=== PATIENT | male | born 1950 | race African-American/Black ===

== ENCOUNTER 2017-11-30 08:53 | Inpatient (IN) | payer OTHER ==
[2017-11-30 09:17] LABS: ADD MAN DIFF? NO
[2017-11-30 09:27] LABS: ANION GAP 9 (6-14); BLOOD UREA NITROGEN 7 mg/dL (8-26); CALCIUM 9.4 mg/dL (8.5-10.1); CARBON DIOXIDE 31 mmol/L (21-32); CHLORIDE 93 mmol/L (98-107); CREATININE 0.9 mg/dL (0.7-1.3); GFR 101.2; GLUCOSE 109 mg/dL (70-99); POTASSIUM 3.8 mmol/L (3.5-5.1); SODIUM 133 mmol/L (136-145)
[2017-11-30 09:33] LABS: ALBUMIN 3.8 g/dL (3.4-5.0); ALK PHOS 70 U/L (46-116); ALT (SGPT) 26 U/L (16-63); AST (SGOT) 25 U/L (15-37); DIRECT BILIRUBIN 0.2 mg/dL (0.0-0.2); LIPASE 165 U/L (73-393); TOTAL PROTEIN 7.6 g/dL (6.4-8.2)
[2017-11-30 09:36] LABS: TROPONINI < 0.017 ng/mL (0.000-0.055)
[2017-11-30] MEDS ORDERED: IPRATRPIUM/ALBUTEROL 0.5/2.5MG 3 ML NEBU. (09:36)
[2017-11-30] MEDS: IPRATRPIUM/ALBUTEROL 0.5/2.5MG 3 ML NEBU. NEB (09:41)
[2017-11-30 09:42] LABS: NT-PRO BNP 552 pg/mL (0-124)
[2017-11-30 09:44] LABS: BASO % 0 % (0-3); EOS # 0.1 x10^3/uL (0.0-0.7); EOS % 1 % (0-3); HEMATOCRIT 45.4 % (39.0-53.0); HEMOGLOBIN 15.5 g/dL (13.0-17.5); LYMPH # 0.8 x10^3/uL (1.0-4.8); LYMPH % 13 % (24-48); MEAN CORPUSCULAR HEMOGLOBIN 33 pg (25-35); MEAN CORPUSCULAR HGB CONC 34 g/dL (31-37); MEAN CORPUSCULAR VOLUME 95 fL (79-100); MONO # 0.7 x10^3/uL (0.0-1.1); MONO % 12 % (0-9); NEUT # 4.6 x10^3uL (1.8-7.7); NEUT % 74 % (31-73); PLATELET COUNT 184 x10^3/uL (140-400); RED BLOOD COUNT 4.76 x10^6/uL (4.30-5.70); WHITE BLOOD COUNT 6.2 x10^3/uL (4.0-11.0)
[2017-11-30 09:55] LABS: PARTIAL THROMBOPLASTIN TIME 30 SEC (24-38)
[2017-11-30] MEDS ORDERED: MORPHINE SULFATE 2 MG/ML DISP.SYRIN. IV (11:30)
[2017-11-30] MEDS ORDERED: NITROGLYCERIN SUBLINGUAL 0.4 MG BOTTLE OF 25. SL (11:30)
[2017-11-30] MEDS ORDERED: ONDANSETRON PF 4 MG/2 ML VIAL. IV (11:30)
[2017-11-30] MEDS ORDERED: ASPIRIN 325 MG TABLET (11:44)
[2017-11-30] MEDS ORDERED: HYDROcodone/APAP 5/325MG 1 TAB TABLET (11:46)
[2017-11-30] MEDS: HYDROcodone/APAP 5/325MG 1 TAB TABLET PO ×3 (11:48→22:12)
[2017-11-30] MEDS: ASPIRIN CHEWABLE 81 MG TABLET. PO (11:49)
[2017-11-30 12:10] LABS: MAGNESIUM 1.9 mg/dL (1.8-2.4)
[2017-11-30 12:32] LABS: INFLUENZA A PATIENT NEGATIVE (NEGATIVE); INFLUENZA B PATIENT NEGATIVE (NEGATIVE); OBC FLU VALID
[2017-11-30 13:20] LABS: TROPONINI < 0.017 ng/mL (0.000-0.055)
[2017-11-30] MEDS: IV NORMAL SALINE 1000ML BAG 1,000 ML IV (15:17)
[2017-12-01] MEDS: IV NORMAL SALINE 1000ML BAG 1,000 ML IV ×2 (00:54→07:22)
[2017-12-01 01:33] LABS: TROPONINI < 0.017 ng/mL (0.000-0.055)
[2017-12-01 05:02] LABS: ADD MAN DIFF? NO
[2017-12-01 05:29] LABS: BASO % 0 % (0-3); EOS # 0.1 x10^3/uL (0.0-0.7); EOS % 1 % (0-3); HEMOGLOBIN 14.2 g/dL (13.0-17.5); LYMPH # 0.8 x10^3/uL (1.0-4.8); LYMPH % 16 % (24-48); MEAN CORPUSCULAR HEMOGLOBIN 33 pg (25-35); MEAN CORPUSCULAR HGB CONC 34 g/dL (31-37); MEAN CORPUSCULAR VOLUME 97 fL (79-100); MONO # 0.7 x10^3/uL (0.0-1.1); MONO % 14 % (0-9); NEUT # 3.5 x10^3uL (1.8-7.7); NEUT % 69 % (31-73); PLATELET COUNT 141 x10^3/uL (140-400); RED BLOOD COUNT 4.35 x10^6/uL (4.30-5.70); RED CELL DISTRIBUTION WIDTH 14.2 % (11.5-14.5); WHITE BLOOD COUNT 5.1 x10^3/uL (4.0-11.0)
[2017-12-01 06:04] LABS: CHOLESTEROL 158 mg/dL (0-200); HDLC 53 mg/dL (40-60); LDLC 99 mg/dL (0-100); NON-HDL CHOLESTEROL 105 mg/dL (0-129); TRIGLYCERIDES 30 mg/dL (0-150); VLDLC 6 mg/dL (0-40)
[2017-12-01 06:19] LABS: ANION GAP 10 (6-14); BLOOD UREA NITROGEN 10 mg/dL (8-26); CALCIUM 8.7 mg/dL (8.5-10.1); CARBON DIOXIDE 28 mmol/L (21-32); CHLORIDE 97 mmol/L (98-107); CREATININE 0.9 mg/dL (0.7-1.3); GFR 101.2; GLUCOSE 80 mg/dL (70-99); POTASSIUM 4.3 mmol/L (3.5-5.1); SODIUM 135 mmol/L (136-145)
[2017-12-01 07:34] LABS: BARBITURATES NEG (NEG); BENZODIAZEPINES NEG (NEG); CANNABINOIDS POS (NEG); COCAINE NEG (NEG); METHADONE NEG (NEG); OPIATES POS (NEG); PHENCYCLIDINE NEG (NEG)
[2017-12-01 07:36] LABS: AMPHETAMINE/METHAMPHETAMINE NEG (NEG); ETHANOL, URINE NEG (NEG)
[2017-12-01] MEDS: REGADENOSON 0.4 MG/5 ML DISP.SYRIN. IV (11:10)
[2017-12-01] MEDS: MULTIVITAMIN with MINERAL TABLET. PO (12:00)
[2017-12-01] MEDS: FOLIC ACID 1 MG TABLET. PO (12:00)
[2017-12-01] MEDS: THIAMINE 100 MG in IV DEXTROSE 5% 50 ML IV (17:10)
[2017-12-01] MEDS: FAMOTIDINE 20 MG TABLET. PO (18:12)
[2017-12-01] MEDS: BENZOCAINE/MENTHOL LOZENGE. PO ×2 (19:54→22:09)
[2017-12-02 03:51] LABS: ADD MAN DIFF? NO
[2017-12-02 03:56] LABS: BASO % 0 % (0-3); EOS # 0.1 x10^3/uL (0.0-0.7); EOS % 2 % (0-3); HEMATOCRIT 46.5 % (39.0-53.0); HEMOGLOBIN 15.6 g/dL (13.0-17.5); LYMPH # 1.6 x10^3/uL (1.0-4.8); LYMPH % 22 % (24-48); MEAN CORPUSCULAR HEMOGLOBIN 32 pg (25-35); MEAN CORPUSCULAR HGB CONC 34 g/dL (31-37); MEAN CORPUSCULAR VOLUME 96 fL (79-100); MONO # 0.7 x10^3/uL (0.0-1.1); MONO % 10 % (0-9); NEUT # 4.7 x10^3uL (1.8-7.7); NEUT % 66 % (31-73); PLATELET COUNT 163 x10^3/uL (140-400); RED BLOOD COUNT 4.87 x10^6/uL (4.30-5.70); RED CELL DISTRIBUTION WIDTH 13.9 % (11.5-14.5)
[2017-12-02 04:16] LABS: ANION GAP 5 (6-14); BLOOD UREA NITROGEN 8 mg/dL (8-26); CALCIUM 8.9 mg/dL (8.5-10.1); CARBON DIOXIDE 32 mmol/L (21-32); CHLORIDE 97 mmol/L (98-107); CREATININE 0.7 mg/dL (0.7-1.3); GFR 135.3; GLUCOSE 101 mg/dL (70-99); SODIUM 134 mmol/L (136-145)
[2017-12-02] MEDS: MULTIVITAMIN with MINERAL TABLET. PO (08:35)
[2017-12-02] MEDS: FOLIC ACID 1 MG TABLET. PO (08:35)
[2017-12-02] MEDS: CARVEDILOL 3.125 MG TABLET. PO (13:52)
[2017-12-02] MEDS ORDERED: hydroCHLOROthiazide 12.5 MG CAPSULE PO (15:00)
[2017-12-02] MEDS: LISINOPRIL 10 MG TABLET PO (15:11)
[2017-12-02] MEDS ORDERED: CARVEDILOL 3.125 MG TABLET. PO (17:00)
[2017-12-02] MEDS ORDERED: ATORVASTATIN CALCIUM 10 MG TABLET. PO (21:00)
[2017-12-03] MEDS ORDERED: ASPIRIN ENTERIC COATED 81 MG TABLET.DR. PO (08:00)
== END 2017-12-02 16:50 | disposition home or self-care (01) | DRG 303 ==
LOC: ER 08:53 → 2 SOUTH 11:24
DX: I25.119 Atherosclerotic heart disease of native coronary artery with unspecified angina pectoris (principal); I11.0 Hypertensive heart disease with heart failure; E87.1 Hypo-osmolality and hyponatremia; I42.9 Cardiomyopathy, unspecified; I50.9 Heart failure, unspecified; R07.89 Other chest pain; F10.20 Alcohol dependence, uncomplicated; R03.0 Elevated blood-pressure reading, without diagnosis of hypertension; I49.3 Ventricular premature depolarization; K21.9 Gastro-esophageal reflux disease without esophagitis; Z82.49 Family history of ischemic heart disease and other diseases of the circulatory system; Z87.11 Personal history of peptic ulcer disease; Z87.891 Personal history of nicotine dependence
CPT/HCPCS: 36415; 71045; 78452; 80048; 80061; 80076; 80307; 83690; 83735; 83880; 84443; 84484; 85025; 85610; 85730; 87804; 87804-59; 93005; 93017; 93306; 94640; 96375; 96376; 99285; 99285-25; A9500; J2785; J7030; J7620

== ENCOUNTER 2017-12-03 12:09 | Inpatient (IN) | payer OTHER ==
[2017-12-03 13:27] LABS: ADD MAN DIFF? NO
[2017-12-03 13:29] LABS: BASO % 0 % (0-3); EOS % 1 % (0-3); HEMOGLOBIN 15.9 g/dL (13.0-17.5); LYMPH # 1.2 x10^3/uL (1.0-4.8); LYMPH % 17 % (24-48); MEAN CORPUSCULAR HEMOGLOBIN 32 pg (25-35); MEAN CORPUSCULAR HGB CONC 34 g/dL (31-37); MEAN CORPUSCULAR VOLUME 96 fL (79-100); MONO # 0.7 x10^3/uL (0.0-1.1); MONO % 9 % (0-9); NEUT # 5.4 x10^3uL (1.8-7.7); NEUT % 73 % (31-73); PLATELET COUNT 188 x10^3/uL (140-400); RED BLOOD COUNT 4.92 x10^6/uL (4.30-5.70); RED CELL DISTRIBUTION WIDTH 14.2 % (11.5-14.5); WHITE BLOOD COUNT 7.3 x10^3/uL (4.0-11.0)
[2017-12-03 13:41] LABS: INFLUENZA A PATIENT NEGATIVE (NEGATIVE); INFLUENZA B PATIENT NEGATIVE (NEGATIVE)
[2017-12-03 13:42] LABS: OBC FLU VALID
[2017-12-03 13:47] LABS: ANION GAP 11 (6-14); BLOOD UREA NITROGEN 18 mg/dL (8-26); BUN/CREATININE RATIO 16 (6-20); CALCIUM 9.5 mg/dL (8.5-10.1); CARBON DIOXIDE 28 mmol/L (21-32); CHLORIDE 99 mmol/L (98-107); CREATININE 1.1 mg/dL (0.7-1.3); GFR 80.3; GLUCOSE 121 mg/dL (70-99); POTASSIUM 4.5 mmol/L (3.5-5.1); SODIUM 138 mmol/L (136-145)
[2017-12-03 13:49] LABS: BILIRUBIN,URINE SMALL (NEG); CLARITY,URINE CLOUDY; COLOR,URINE AMBER; GLUCOSE,URINE NEGATIVE (NEG); NITRITE,URINE NEGATIVE (NEG); PH,URINE 5.5; PROTEIN,URINE NEGATIVE (NEG-TRACE); UROBILINOGEN,URINE 0.2 mg/dL (0.2 mg/dL)
[2017-12-03 13:53] LABS: ALBUMIN 3.7 g/dL (3.4-5.0); ALK PHOS 69 U/L (46-116); ALT (SGPT) 30 U/L (16-63); AST (SGOT) 23 U/L (15-37); TOTAL BILIRUBIN 0.8 mg/dL (0.2-1.0); TOTAL PROTEIN 7.3 g/dL (6.4-8.2)
[2017-12-03 13:58] LABS: TROPONINI < 0.017 ng/mL (0.000-0.055)
[2017-12-03 13:59] LABS: BACTERIA,URINE 0 /HPF (0-FEW)
[2017-12-03 14:00] LABS: HYALINE CASTS, URINE MANY /HPF
[2017-12-03 14:10] LABS: NT-PRO BNP 371 pg/mL (0-124)
[2017-12-03 14:10] LABS: CKMB MASS 0.7 ng/mL (0.0-3.6)
[2017-12-03 14:11] LABS: CREATINE KINASE 36 U/L (39-308)
[2017-12-03] MEDS: IV NORMAL SALINE 1000ML BAG 1,000 ML IV (15:29)
[2017-12-03] MEDS ORDERED: ACETAMINOPHEN 325 MG TABLET. PO (15:30)
[2017-12-03] MEDS: ASPIRIN ENTERIC COATED 325 MG TABLET.DR. PO (17:34)
[2017-12-03] MEDS: CARVEDILOL 3.125 MG TABLET. PO (17:34)
[2017-12-03] MEDS: LISINOPRIL 5 MG TABLET. PO (17:35)
[2017-12-03] MEDS: ATORVASTATIN CALCIUM 10 MG TABLET. PO (21:37)
[2017-12-04] MEDS: IV NORMAL SALINE 1000ML BAG 1,000 ML IV ×2 (04:49→10:37)
[2017-12-04 06:19] LABS: ADD MAN DIFF? NO
[2017-12-04 06:45] LABS: BASO % 0 % (0-3); EOS # 0.1 x10^3/uL (0.0-0.7); EOS % 1 % (0-3); HEMATOCRIT 45.4 % (39.0-53.0); HEMOGLOBIN 15.4 g/dL (13.0-17.5); LYMPH # 1.6 x10^3/uL (1.0-4.8); LYMPH % 26 % (24-48); MEAN CORPUSCULAR HEMOGLOBIN 32 pg (25-35); MEAN CORPUSCULAR HGB CONC 34 g/dL (31-37); MEAN CORPUSCULAR VOLUME 95 fL (79-100); MONO # 0.7 x10^3/uL (0.0-1.1); MONO % 11 % (0-9); NEUT # 3.9 x10^3uL (1.8-7.7); NEUT % 61 % (31-73); PLATELET COUNT 216 x10^3/uL (140-400); RED BLOOD COUNT 4.77 x10^6/uL (4.30-5.70); WHITE BLOOD COUNT 6.3 x10^3/uL (4.0-11.0)
[2017-12-04 07:01] LABS: ANION GAP 5 (6-14); BLOOD UREA NITROGEN 19 mg/dL (8-26); CALCIUM 9.3 mg/dL (8.5-10.1); CARBON DIOXIDE 33 mmol/L (21-32); CHLORIDE 98 mmol/L (98-107); GFR 89.6; GLUCOSE 96 mg/dL (70-99); POTASSIUM 4.5 mmol/L (3.5-5.1); SODIUM 136 mmol/L (136-145)
[2017-12-04] MEDS: CARVEDILOL 3.125 MG TABLET. PO ×2 (07:57→18:32)
[2017-12-04] MEDS: ASPIRIN ENTERIC COATED 325 MG TABLET.DR. PO (07:57)
[2017-12-04] MEDS: LISINOPRIL 5 MG TABLET. PO (07:58)
[2017-12-04] MEDS ORDERED: LIDOCAINE 2% 20 ML VIAL. (08:44)
[2017-12-04] MEDS ORDERED: IOHEXOL 300 MG/ML 100ML VIAL. (08:44)
[2017-12-04] MEDS ORDERED: fentaNYL PF VIAL 100 MCG/2 ML VIAL (09:19)
[2017-12-04] MEDS ORDERED: MIDAZOLAM HCL/PF 2 MG/2 ML VIAL. (09:20)
[2017-12-04] MEDS ORDERED: IODIXANOL 320 MG/ML 100 ML VIAL. (09:34)
[2017-12-04] MEDS: MIDAZOLAM HCL/PF 2 MG/2 ML VIAL. IV (09:37)
[2017-12-04] MEDS ORDERED: CONTRAST GIVEN MC (09:45)
[2017-12-04] MEDS: LIDOCAINE 2% 20 ML VIAL. IJ (09:46)
[2017-12-04] MEDS ORDERED: HEPARIN for IV BOLUS 10,000 UNIT/10 ML VIAL. (10:03)
[2017-12-04] MEDS: fentaNYL PF VIAL 100 MCG/2 ML VIAL IV ×2 (10:14→10:20)
[2017-12-04] MEDS: HEPARIN for IV BOLUS 10,000 UNIT/10 ML VIAL. IV (10:15)
[2017-12-04] MEDS: IOHEXOL 300 MG/ML 100ML VIAL. IART (10:16)
[2017-12-04] MEDS ORDERED: 0.9 % SODIUM CHLORIDE 10 ML DISP.SYRIN. IV (10:45)
[2017-12-04] MEDS ORDERED: NITROGLYCERIN SUBLINGUAL 0.4 MG BOTTLE OF 25. SL (10:45)
[2017-12-04] MEDS: ONDANSETRON PF 4 MG/2 ML VIAL. IV (12:19)
[2017-12-04] MEDS ORDERED: ACETAMINOPHEN 325 MG TABLET. PO (13:15)
[2017-12-04] MEDS ORDERED: MORPHINE SULFATE 2 MG/ML DISP.SYRIN. IV (13:15)
[2017-12-04] MEDS ORDERED: ONDANSETRON PF 4 MG/2 ML VIAL. IV (13:15)
[2017-12-04] MEDS ORDERED: hydrALAZINE 20 MG/ML VIAL. IVP (13:15)
[2017-12-04] MEDS: ENOXAPARIN 40 MG/0.4 ML SYRINGE. SQ (18:33)
[2017-12-04] MEDS: ATORVASTATIN CALCIUM 10 MG TABLET. PO (21:17)
[2017-12-04] MEDS: CLOPIDOGREL BISULFATE 75 MG TABLET PO (21:17)
[2017-12-05 04:57] LABS: ANION GAP 7 (6-14); BLOOD UREA NITROGEN 16 mg/dL (8-26); CALCIUM 8.8 mg/dL (8.5-10.1); CARBON DIOXIDE 31 mmol/L (21-32); CHLORIDE 100 mmol/L (98-107); CREATININE 0.9 mg/dL (0.7-1.3); GFR 101.2; GLUCOSE 81 mg/dL (70-99); POTASSIUM 4.2 mmol/L (3.5-5.1); SODIUM 138 mmol/L (136-145)
[2017-12-05] MEDS: IV NORMAL SALINE 1000ML BAG 1,000 ML IV (07:32)
[2017-12-05] MEDS: ASPIRIN ENTERIC COATED 325 MG TABLET.DR. PO (08:43)
[2017-12-05] MEDS: CARVEDILOL 3.125 MG TABLET. PO ×2 (08:43→16:56)
[2017-12-05] MEDS: LISINOPRIL 5 MG TABLET. PO (08:45)
[2017-12-05] MEDS ORDERED: LIDOCAINE 2% 20 ML VIAL. (12:30)
[2017-12-05] MEDS ORDERED: HEPARIN for IV BOLUS 10,000 UNIT/10 ML VIAL. ×2 (13:02→13:46)
[2017-12-05] MEDS ORDERED: VERAPAMIL 5 MG/2 ML VIAL. (13:02)
[2017-12-05] MEDS ORDERED: fentaNYL PF VIAL 100 MCG/2 ML VIAL (13:03)
[2017-12-05] MEDS ORDERED: MIDAZOLAM HCL/PF 2 MG/2 ML VIAL. (13:03)
[2017-12-05] MEDS ORDERED: NITROGLYCERIN 4 MG/20 ML SYRINGE for CATH LAB. (13:03)
[2017-12-05] MEDS: NITROGLYCERIN 4MG SYRINGE 4 MG, VERAPAMIL 10 MG, HEPARIN SODIUM 4,000 UNIT, VIPERSLIDE ... IART (14:00)
[2017-12-05] MEDS: NITROGLYCERIN 200 MCG/2 ML SYRINGE FOR CATH/VASC LAB. ICAR (14:30)
[2017-12-05] MEDS ORDERED: CLOPIDOGREL BISULFATE 75 MG TABLET (14:32)
[2017-12-05] MEDS ORDERED: NITROGLYCERIN 200 MCG/2 ML SYRINGE FOR CATH/VASC LAB. (14:32)
[2017-12-05 14:45] LABS: ISTAT ACT 99 sec (92-181)
[2017-12-05 14:45] LABS: ISTAT ACT 229 sec (92-181)
[2017-12-05] MEDS: IODIXANOL 320 MG/ML 100 ML VIAL. IART (14:45)
[2017-12-05] MEDS: HEPARIN for IV BOLUS 10,000 UNIT/10 ML VIAL. IV (14:55)
[2017-12-05] MEDS: CLOPIDOGREL BISULFATE 75 MG TABLET PO (14:55)
[2017-12-05] MEDS: NITROGLYCERIN 200 MCG/2 ML SYRINGE FOR CATH/VASC LAB. IART (14:56)
[2017-12-05] MEDS: LIDOCAINE 2% 20 ML VIAL. IJ (14:56)
[2017-12-05] MEDS: MIDAZOLAM HCL/PF 2 MG/2 ML VIAL. IV (14:57)
[2017-12-05] MEDS: fentaNYL PF VIAL 100 MCG/2 ML VIAL IV (14:57)
[2017-12-05] MEDS: ENOXAPARIN 40 MG/0.4 ML SYRINGE. SQ (16:56)
[2017-12-05] MEDS: PANTOPRAZOLE 40 MG TABLET.DR. PO (20:11)
[2017-12-05] MEDS: ATORVASTATIN CALCIUM 10 MG TABLET. PO (20:11)
[2017-12-05] MEDS: DOCUSATE SODIUM 100 MG CAPSULE. PO (20:11)
[2017-12-06] MEDS: PANTOPRAZOLE 40 MG TABLET.DR. PO (08:15)
[2017-12-06] MEDS: ASPIRIN ENTERIC COATED 325 MG TABLET.DR. PO (08:16)
[2017-12-06] MEDS: LISINOPRIL 5 MG TABLET. PO (08:16)
[2017-12-06] MEDS: CARVEDILOL 3.125 MG TABLET. PO (08:17)
[2017-12-06] MEDS: traMADol 50 MG TABLET PO (09:26)
[2017-12-06] MEDS: LACTOBACILLUS RHAMNOSUS GG 1 CAPSULE. PO (10:01)
[2017-12-07] MEDS ORDERED: CLOPIDOGREL BISULFATE 75 MG TABLET PO (08:00)
== END 2017-12-06 17:34 | disposition home or self-care (01) | DRG 286 ==
LOC: ER 12:09 → 2 NORTH 14:18
PROC: 4A023N7 Measurement of Cardiac Sampling and Pressure, Left Heart, Percutaneous Approach (ICD-10-PCS; principal; 2017-12-04)
PROC: B2111ZZ Fluoroscopy of Multiple Coronary Arteries using Low Osmolar Contrast (ICD-10-PCS; 2017-12-04)
PROC: B2151ZZ Fluoroscopy of Left Heart using Low Osmolar Contrast (ICD-10-PCS; 2017-12-04)
DX: I49.3 Ventricular premature depolarization (principal); I50.43 Acute on chronic combined systolic (congestive) and diastolic (congestive) heart failure; E78.00 Pure hypercholesterolemia, unspecified; I11.0 Hypertensive heart disease with heart failure; F12.90 Cannabis use, unspecified, uncomplicated; E78.5 Hyperlipidemia, unspecified; I25.10 Atherosclerotic heart disease of native coronary artery without angina pectoris; Z87.11 Personal history of peptic ulcer disease; Z82.49 Family history of ischemic heart disease and other diseases of the circulatory system
CPT/HCPCS: 36415; 71045; 80048; 80053; 81001; 82553; 83880; 84484; 85025; 85347; 87804; 87804-59; 92924; 92928; 93005; 93458; 99152; 99153; 99285; 99285-25; C1724; C1725; C1769; C1771; C1874; C1887; C1892; G0269; J1644; J1650; J2250; J2405; J3010; J3490; J7030; Q9967

== ENCOUNTER → 2021-04-21 | Day surgery (SDC) | payer MEDICARE ==
[~2021-04-21] VITALS: Ht 180.3 cm; Wt 110.0 kg
[~2021-04-21] MED LIST: ASPI325T11 PO; ATOR10TA60 PO; BUDE10.7 IH; CARV3.12 PO; CIME300S4 PO; CLOP75TA PO; IV RINGERS,LACTATED 1000ML 1,000 ML IV ONE; LEVO500T59 PO; LIDOCAINE 2% PF 5 ML VIAL. ONE; LISI-517 PO; METO100T7 PO; PANT40TA77 PO; PROPOFOL 10 MG/ML (20ML) VIAL. IV ONE
[2021-04-21 08:05] VITALS: BP 195/113
[2021-04-21 09:08] VITALS: BP 180/105
== END | disposition home or self-care (01) ==
LOC: ENDOS 07:31
PROVIDERS: ATTEND Internal Medicine Gastroenterology
DX: R13.10 Dysphagia, unspecified (principal); K29.50 Unspecified chronic gastritis without bleeding; K31.89 Other diseases of stomach and duodenum; K21.9 Gastro-esophageal reflux disease without esophagitis; I11.0 Hypertensive heart disease with heart failure; I50.9 Heart failure, unspecified; J43.9 Emphysema, unspecified; Z79.82 Long term (current) use of aspirin; Z79.899 Other long term (current) drug therapy; Z98.890 Other specified postprocedural states; Z72.89 Other problems related to lifestyle
CPT/HCPCS: 43235; 43450; J2704